=== PATIENT | female | born 1940 | race Caucasian/White ===

== ENCOUNTER 2019-02-11 14:35 | Emergency (ER) | payer OTHER ==
--- NOTE | 2019-02-11 15:40 | RAD REPORT ---
EXAM DESCRIPTION: Kaden Single View02/11/2019 3:31 pm CLINICAL HISTORY: Dizziness/breast cancer COMPARISON: 2016 FINDINGS: The lungs appear clear of acute infiltrate. The heart is normal size IMPRESSION: No acute abnormalities displayed
[2019-02-11 15:41] LABS: Absolute Lymphocytes (CBC) 2.2 K/uL (0.7-4.9); Basophils % 1.2 % (0-1.3); Hematocrit 39.7 % (36.0-45.0); Lymphocytes % 32.7 % (15.3-44.8); MPV 8.7 fL (7.6-11.3); RBC Red Blood Cell Count 4.81 M/uL (3.86-4.86)
[2019-02-11 15:52] LABS: Protime INR 0.96
--- NOTE | 2019-02-11 15:58 | RAD REPORT ---
EXAM DESCRIPTION: CT - Head Brain Wo Cont - 02/11/2019 3:51 pm CLINICAL HISTORY: Dizziness COMPARISON: September 2018 TECHNIQUE: Computed axial tomography of the head was obtained. IV contrast was not requested. All CT scans are performed using dose optimization technique as appropriate and may include automated exposure control or mA/KV adjustment according to patient size. FINDINGS: An intracranial bleed is not seen . The ventricles are normal in caliber. No extra-axial fluid collection is noted. Mild low-density areas within periventricular, deep and subcortical white matter likely represent isc hemic changes secondary to small vessel disease. Fluid within the sinuses/ mastoids is not seen. IMPRESSION: No acute intracranial abnormality is seen. If patient's symptoms persist MRI of the bra in would be recommended.
[2019-02-11 16:21] LABS: ALT/SGPT 21 U/L (12-78); AST/SGOT 19 U/L (15-37); Albumin 3.6 g/dL (3.4-5.0); Alkaline Phosphatase 106 U/L (45-117); BUN Blood Urea Nitrogen 11 mg/dL (7-18); Bicarbonate 29 mmol/L (21-32); Bilirubin Direct 0.2 mg/dL (0-0.2); Bilirubin Total 0.3 mg/dL (0.2-1.0); Glucose Level 93 mg/dL (74-106); Magnesium 2.1 mg/dL (1.8-2.4); NT PRO-BNP 55 pg/mL (<450); Potassium 4.2 mmol/L (3.5-5.1); Protein, Total 6.9 g/dL (6.4-8.2); Sodium Level 143 mmol/L (136-145); Troponin (Emerg Dept Use Only) < 0.02 ng/mL (0.0-0.045)
--- NOTE | 2019-02-11 17:29 | RAD REPORT ---
EXAM DESCRIPTION: MRI - Brain W/Wo Cont - 02/11/2019 4:58 pm CLINICAL HISTORY: Syncope/dizziness COMPARISON: February 11, [address] TECHNIQUE: Axial, sagittal, and coronal magnetic images of the brain were obtained. 20 cc MultiHance administered intravenously FINDINGS: Mild to moderate signal within periventricular, deep and subcortical white matter probably ischemic changes secondary to small vessel disease The ventricles are normal in caliber. Diffusion-weighted/ ADC mapping sequences do not demonstrate evidence of an acute infarction. No abnormal enhancement within the brain is seen. An extra-axial fluid collection is not noted. Fluid within the sinuses/mastoids is not seen IMPRESSION: No acute abnormality displayed
--- NOTE | 2019-02-11 17:31 | RAD REPORT ---
EXAM DESCRIPTION: MRI - MRA Neck W/Wo Cont - 02/11/2019 4:56 pm CLINICAL HISTORY: Syncope/dizziness COMPARISON: None. TECHNIQUE: Magnetic resonance angiogram of the neck was performed. 17Cc MultiHance was administered intravenously. 3D MIPS reconstruction performed FINDINGS: The common carotid, internal carotid and external carotid arteries do not demonstrate a si gnificant stenosis. An aneurysm is not seen. Mild plaque is present within the carotid arteries The left vertebral artery is dominant. No abnormality of the vertebral arteries noted. IMPRESSION: Mild plaque within in the carotid arteries NASCET criteria used. Mild 0-49% stenosis Moderate 50-69% stenosis Severe 70-99% stenosis
--- NOTE | 2019-02-11 17:34 | RAD REPORT ---
EXAM DESCRIPTION: MRI - MRA Head Wo Cont - 02/11/2019 4:56 pm CLINICAL HISTORY: Syncope/dizziness COMPARISON: 2009 TECHNIQUE: Magnetic resonance angiogram was performed. 3D MIPS reconstruction performed FINDINGS: The anterior cerebral, middle cerebral, posterior cerebral, distal internal carotid and ba silar arteries do not demonstrate a significant stenosis. An aneurysm is not displayed. IMPRESSION: Unremarkable MRA brain.
[2019-02-11] MEDS ORDERED: DIAZEPAM 2 MG TABLET ONE (17:35)
[2019-02-11] MEDS ORDERED: MECLIZINE HCL 12.5 MG TAB ONE (17:36)
--- NOTE | 2019-02-11 18:06 | ER ---
Nurse's Notes [facility] Name: Bella Ireland Age: 78 yrs Sex: Female : 1940 Arrival Date: 02/11/2019 Time: 14:36 Bed 23 Private MD: Diagnosis: Dizziness and giddiness Presentation: 02/11 14:37 Presenting complaint: Patient states: i have had vertigo since Saturday, i have been tw2 having some issues with it, it goes away, and then it gets worse again, today it got worse and i got real nauseous. Transition of care: patient was not received from another setting of care. Onset of symptoms was February 11, 2019. Risk Assessment: Do you want to hurt yourself or someone else? Patient reports no desire to harm self or others. Initial Sepsis Screen: Does the patient meet any 2 criteria? No. Patient's initial sepsis screen is negative. Does the patient have a suspected source of infection? No. Patient's initial sepsis screen is negative. Care prior to arrival: None. 14:37 Method Of Arrival: Wheelchair tw2 14:37 Acuity: MARGIE 3 tw2 Triage Assessment: 14:42 General: Appears in no apparent distress. Behavior is calm, cooperative, appropriate tw2 for age. Neuro: Reports dizziness. GI: Reports nausea. Historical: - Allergies: 14:43 No Known Allergies; tw2 - Home Meds: 14:42 B-12 DOTS 500 mcg Oral tab [Active]; Co Q-10 200 mg Oral cap [Active]; escitalopram tw2 oxalate 10 mg Oral tab 1 tab once daily for Anxiety with Depression [Active]; Fish Oil 500 mg Oral cap [Active]; folic acid 400 mcg Oral tab 1 tab once daily [Active]; hydrocodone-acetaminophen 5-325 mg Oral tab 1 tab every 6 hours [Active]; levothyroxine 75 mcg tab 1 tab once daily for Hypothyroidism [Active]; losartan 50 mg Oral tab 1 tab once daily for Hypertension [Active]; Phenergan Oral 25 mg [Active]; Pravachol 40 mg Oral tab 1 tab once daily for Mixed Hyperlipidemia [Active]; topiramate 100 mg Oral tab 1 tab 2 times per day for Migraine Prevention [Active]; Vitamin D Oral 2000 unit [Active]; pravastatin 40 mg oral tab 1 tab once daily [Active]; - PMHx: 14:42 Cancer; Depression; Hyperlipidemia; Hypertension; Hypothyroidism; Migraines; tw2 - PSHx: 14:42 Hysterectomy; Cholecystectomy; Appendectomy; Tonsillectomy; Knee surgery; L Masectomy; tw2 Rotator Cuff Bilateral; - Immunization history:: Adult Immunizations. - Social history:: Smoking status: . - Ebola Screening: : Patient denies travel to an Ebola-affected area in the 21 days before illness onset. Screenin:24 Abuse screen: Denies threats or abuse. Denies injuries from another. Nutritional ca1 screening: No deficits noted. Tuberculosis screening: No symptoms or risk factors identified. Fall Risk IV access (20 points). Assessment: 15:24 General: Appears in no apparent distress. comfortable, Behavior is calm, cooperative, ca1 appropriate for age. Pain: Denies pain. Neuro: Level of Consciousness is awake, alert, obeys commands, Oriented to person, place, time, situation, Appropriate for age Reports dizziness. Cardiovascular: Heart tones S1 S2 present Capillary refill < 3 seconds Patient's skin is warm and dry. Pulses are all present. Respiratory: Airway is patent Respiratory effort is even, unlabored, Respiratory pattern is regular, symmetrical, Breath sounds are clear bilaterally. GI: Abdomen is round non-distended, Bowel sounds present X 4 quads. Abd is soft and non tender X 4 quads. Reports nausea. : No deficits noted. No signs and/or symptoms were reported regarding the genitourinary system. EENT: No deficits noted. No signs and/or symptoms were reported regarding the EENT system. Derm: Skin is intact, is healthy with good turgor, Skin is pink, warm \\T\\ dry. Musculoskeletal: Circulation, motion, and sensation intact. Capillary refill < 3 seconds, Range of motion: intact in all extremities. 17:10 Reassessment: Patient appears in no apparent distress at this time. Patient and/or ca1 family updated on plan of care and expected duration. Pain level reassessed. Patient is alert, oriented x 3, equal unlabored respirations, skin warm/dry/pink. Pt back from CT and MRI. 17:25 Reassessment: Pt ambulated to rest room with quick unsteady gait. ca1 18:38 Reassessment: Patient appears in no apparent distress at this time. Patient is alert, ca1 oriented x 3, equal unlabored respirations, skin warm/dry/pink. Vital Signs: 14:38 BP 132 / 73; Pulse 91; Resp 17; Temp 98.3(O); Pulse Ox 96% on R/A; Weight 74.84 kg (R); tw2 Height 5 ft. 2 in. (157.48 cm) (R); Pain 8/10; 15:30 BP 107 / 63; Pulse 82; Resp 17 S; Pulse Ox 97% on R/A; ca1 17:20 BP 96 / 54; Pulse 78; Resp 15; Pulse Ox 97% on R/A; rv 18:30 BP 131 / 61; Pulse 86; Resp 17 S; Pulse Ox 95% on R/A; ca1 14:38 Body Mass Index 30.18 (74.84 kg, 157.48 cm) tw2 14:38 "but its really the dizziness not pain:" tw2 ED Course: 14:36 Patient arrived in ED. as 14:38 Triage completed. tw2 14:42 Arm band placed on. tw2 14:56 Mickie Serna, SANDRA is Primary Nurse. ca1 15:05 Noel Ignacio MD is Attending Physician. kdr 15:24 Patient has correct armband on for positive identification. Placed in gown. Bed in low ca1 position. Call light in reach. Side rails up X2. pad extraction tender on. Pulse ox on. NIBP on. Warm blanket given. Pillow given. 15:24 No provider procedures requiring assistance completed. Initial lab(s) drawn, by ar, ca1 sent to lab. Inserted saline lock: 22 gauge in right forearm, using aseptic technique. Blood collected. 15:32 XRAY Chest (1 view) In Process Unspecified. EDMS 15:40 EKG done, by urgent care technician. reviewed by Noel Ignacio MD. sm3 15:52 CT Head Brain wo Cont In Process Unspecified. EDMS 16:56 MRA Head Wo Cont In Process Unspecified. EDMS 16:57 MRA Neck W/Wo Cont In Process Unspecified. EDMS 16:57 Brain W/Wo Cont In Process Unspecified. EDMS 17:32 Macho Lara NP is PHCP. pm1 18:39 IV discontinued, intact, bleeding controlled, No redness/swelling at site. Pressure ca1 dressing applied. Administered Medications: 17:35 Drug: Meclizine 25 mg Route: PO; ca1 18:10 Follow up: Response: No adverse reaction; Marked relief of symptoms ca1 17:35 Drug: Valium 2 mg Route: PO; ca1 18:10 Follow up: Response: No adverse reaction; Marked relief of symptoms ca1 Outcome: 18:05 Discharge ordered by . pm1 18:39 Discharged to home via wheelchair, with family. ca1 18:39 Condition: stable 18:39 Discharge instructions given to patient, family, Instructed on discharge instructions, follow up and referral plans. no drinking with medication, no driving heavy equipment, medication usage, Demonstrated understanding of instructions, follow-up care, medications, Prescriptions given X 3. 18:39 Patient left the ED. ca1 Signatures: Dispatcher [employer] EDMS Noel Ignacio MD MD kdr Martinez, Amelia as Marinas, Patrick, WELT BEATER WELT BEATER pm1 Melissa Haas RN RN tw2 Olesya Olsen sm3 Reyes Golden RN RN rv Mickie Serna RN RN ca1
--- NOTE | 2019-02-11 18:07 | EDPHYS ---
Physician Documentation [facility] Name: Bella Ireland Age: 78 yrs Sex: Female : 1940 Arrival Date: 02/11/2019 Time: 14:36 Bed 23 Private MD: ED Physician Noel Ignacio HPI: 02/11 17:15 This 78 yrs old Female presents to ER via Wheelchair with complaints of kdr Dizziness, Nausea. 17:15 The patient presents with dizziness, generalized weakness, feeling off balance. kdr 17:15 The patient presents with sense of spinning, vertigo. Onset: The symptoms/episode kdr began/occurred suddenly, This episode began on Saturday. She has been having similar episodes for a year or more. She has seen both Neurology and ENT (Most recently). She has not had any recent medications that have helped. She has apparently had the [place] Hallpike/Eploy Maneuver with only transient success. Context: occurred at home, occurred while the patient was at rest. 17:20 Modifying factors: The symptoms are alleviated by nothing, the symptoms are aggravated kdr by movement of head, standing up, changing position. Associated signs and symptoms: Pertinent positives: nausea, Pertinent negatives: abdominal pain, agitation, blurred vision, chest pain, near-syncope, numbness, palpitations, . Severity of symptoms: At their worst the symptoms were moderate in the emergency department the symptoms have improved mildly. Patient's baseline: Neuro: alert and fully oriented, Motor: no deficits, Ambulation: walks without assistance, Speech: normal, The patient has a previous history of TIA, vertigo. Historical: - Allergies: 14:43 No Known Allergies; tw2 - Home Meds: 14:42 B-12 DOTS 500 mcg Oral tab [Active]; Co Q-10 200 mg Oral cap [Active]; escitalopram tw2 oxalate 10 mg Oral tab 1 tab once daily for Anxiety with Depression [Active]; Fish Oil 500 mg Oral cap [Active]; folic acid 400 mcg Oral tab 1 tab once daily [Active]; hydrocodone-acetaminophen 5-325 mg Oral tab 1 tab every 6 hours [Active]; levothyroxine 75 mcg tab 1 tab once daily for Hypothyroidism [Active]; losartan 50 mg Oral tab 1 tab once daily for Hypertension [Active]; Phenergan Oral 25 mg [Active]; Pravachol 40 mg Oral tab 1 tab once daily for Mixed Hyperlipidemia [Active]; topiramate 100 mg Oral tab 1 tab 2 times per day for Migraine Prevention [Active]; Vitamin D Oral 2000 unit [Active]; pravastatin 40 mg oral tab 1 tab once daily [Active]; - PMHx: 14:42 Cancer; Depression; Hyperlipidemia; Hypertension; Hypothyroidism; Migraines; tw2 - PSHx: 14:42 Hysterectomy; Cholecystectomy; Appendectomy; Tonsillectomy; Knee surgery; L Masectomy; tw2 Rotator Cuff Bilateral; - Immunization history:: Adult Immunizations. - Social history:: Smoking status: . - Ebola Screening: : Patient denies travel to an Ebola-affected area in the 21 days before illness onset. ROS: 17:20 Constitutional: Negative for fever, chills, and weight loss, Eyes: Negative for injury, kdr pain, redness, and discharge, Neck: Negative for injury, pain, and swelling, Cardiovascular: Negative for chest pain, palpitations, and edema, Respiratory: Negative for shortness of breath, cough, wheezing, and pleuritic chest pain, Abdomen/GI: Negative for abdominal pain, nausea, vomiting, diarrhea, and constipation, Back: Negative for injury and pain, : Negative for injury, bleeding, discharge, and swelling, MS/Extremity: Negative for injury and deformity, Skin: Negative for injury, rash, and discoloration, Psych: Negative for depression, anxiety, suicide ideation, homicidal ideation, and hallucinations, Allergy/Immunology: Negative for hives, rash, and allergies, Endocrine: Negative for neck swelling, polydipsia, polyuria, polyphagia, and marked weight changes, Hematologic/Lymphatic: Negative for swollen nodes, abnormal bleeding, and unusual bruising. 17:20 Neuro: Positive for dizziness, weakness, Negative for altered mental status, headache, hearing loss, loss of consciousness, seizure activity, speech changes, syncope, near syncope, tingling, tinnitus, tremor, visual changes. Exam: 17:20 Constitutional: This is a well developed, well nourished patient who is awake, alert, kdr and in no acute distress. Head/Face: Normocephalic, atraumatic. Eyes: Pupils equal round and reactive to light, extra-ocular motions intact. Lids and lashes normal. Conjunctiva and sclera are non-icteric and not injected. Cornea within normal limits. Periorbital areas with no swelling, redness, or edema. Neck: Trachea midline, no thyromegaly or masses palpated, and no cervical lymphadenopathy. Supple, full range of motion without nuchal rigidity, or vertebral point tenderness. No Meningismus. Chest/axilla: Normal chest wall appearance and motion. Nontender with no deformity. No lesions are appreciated. Cardiovascular: Regular rate and rhythm with a normal S1 and S2. No gallops, murmurs, or rubs. Normal PMI, no JVD. No pulse deficits. Respiratory: Lungs have equal breath sounds bilaterally, clear to auscultation and percussion. No rales, rhonchi or wheezes noted. No increased work of breathing, no retractions or nasal flaring. Abdomen/GI: Soft, non-tender, with normal bowel sounds. No distension or tympany. No guarding or rebound. No evidence of tenderness throughout. Back: No spinal tenderness. No costovertebral tenderness. Full range of motion. Skin: Warm, dry with normal turgor. Normal color with no rashes, no lesions, and no evidence of cellulitis. MS/ Extremity: Pulses equal, no cyanosis. Neurovascular intact. Full, normal range of motion. Psych: Awake, alert, with orientation to person, place and time. Behavior, mood, and affect are within normal limits. 17:20 Neuro: Orientation: is normal, Mentation: is normal, Memory: is normal, Cranial nerves: grossly normal, is grossly normal based on the patient's age, no acute changes, Cerebellar function: normal finger to nose testing, heel to hernandez testing is normal, able to perform alternating rapid hand movements, Motor: is normal, Sensation: is normal. Vital Signs: 14:38 BP 132 / 73; Pulse 91; Resp 17; Temp 98.3(O); Pulse Ox 96% on R/A; Weight 74.84 kg (R); tw2 Height 5 ft. 2 in. (157.48 cm) (R); Pain 8/10; 15:30 BP 107 / 63; Pulse 82; Resp 17 S; Pulse Ox 97% on R/A; ca1 17:20 BP 96 / 54; Pulse 78; Resp 15; Pulse Ox 97% on R/A; rv 18:30 BP 131 / 61; Pulse 86; Resp 17 S; Pulse Ox 95% on R/A; ca1 14:38 Body Mass Index 30.18 (74.84 kg, 157.48 cm) tw2 14:38 "but its really the dizziness not pain:" tw2 MDM: 17:20 Data reviewed: vital signs, nurses notes. Counseling: I had a detailed discussion with kdr the patient and/or guardian regarding: the historical points, exam findings, and any diagnostic results supporting the discharge/admit diagnosis, lab results, radiology results. 18:01 Counseling: I had a detailed discussion with the patient and/or guardian regarding: the pm1 historical points, exam findings, and any diagnostic results supporting the discharge/admit diagnosis, lab results, radiology results, the need for outpatient follow up, a neurologist, to return to the emergency department if symptoms worsen or persist or if there are any questions or concerns that arise at home. 18:05 Patient medically screened. pm1 02/11 15:06 Order name: Basic Metabolic Panel; Complete Time: 17:14 [facility] 02/11 15:06 Order name: CBC with Diff; Complete Time: 17:14 [facility] 02/11 15:06 Order name: LFT's; Complete Time: 17:14 [facility] 02/11 15:06 Order name: Magnesium; Complete Time: 17:14 [facility] 02/11 15:06 Order name: NT PRO-BNP; Complete Time: 17:14 [facility] 02/11 15:06 Order name: PT-INR; Complete Time: 17:14 [facility] 02/11 15:06 Order name: Troponin (emerg Dept Use Only); Complete Time: 17:14 [facility] 02/11 15:06 Order name: XRAY Chest (1 view); Complete Time: 17:14 [facility] 02/11 15:39 Order name: CT Head Brain wo Cont; Complete Time: 17:14 [facility] 02/11 16:27 Order name: MRA Head Wo Cont; Complete Time: 17:48 EDMS 02/11 16:32 Order name: MRA Neck W/Wo Cont; Complete Time: 17:48 EDMS 02/11 16:32 Order name: Brain W/Wo Cont; Complete Time: 17:48 EDMS 02/11 15:06 Order name: EKG; Complete Time: 15:07 [facility] 02/11 15:06 Order name: Cardiac monitoring; Complete Time: 15:23 [facility] 02/11 15:06 Order name: EKG - Nurse/Tech; Complete Time: 15:36 kdr 02/11 15:06 Order name: IV Saline Lock; Complete Time: 15:23 kdr 02/11 15:06 Order name: Labs collected and sent; Complete Time: 15:23 kdr 02/11 15:06 Order name: O2 Per Protocol; Complete Time: 15:23 kdr 02/11 15:06 Order name: O2 Sat Monitoring; Complete Time: 15:23 kdr Administered Medications: 17:35 Drug: Meclizine 25 mg Route: PO; ca1 18:10 Follow up: Response: No adverse reaction; Marked relief of symptoms ca1 17:35 Drug: Valium 2 mg Route: PO; ca1 18:10 Follow up: Response: No adverse reaction; Marked relief of symptoms ca1 Disposition: 02/12 08:57 Co-signature as Attending Physician, Noel Ignacio MD I agree with the assessment and [facility] plan of care. Disposition: 02/11/19 18:05 Discharged to Home. Impression: Dizziness and giddiness. - Condition is Stable. - Discharge Instructions: Dizziness, Vertigo. - Prescriptions for Meclizine 25 mg Oral Tablet - take 1 tablet by ORAL route every 8 hours As needed; 30 tablet. Zofran 4 mg Oral Tablet - take 1 tablet by ORAL route every 12 hours As needed; 20 tablet. Valium 2 mg Oral Tablet - take 1 tablet by ORAL route every 8 hours As needed; 20 tablet. - Medication Reconciliation Form, Thank You Letter, Antibiotic Education, Prescription Opioid Use form. - Follow up: Emergency Department; When: As needed; Reason: Worsening of condition. Follow up: Private Physician; When: 2 - 3 days; Reason: Recheck today's complaints, Continuance of care, Re-evaluation by your physician. - Problem is new. - Symptoms have improved. Signatures: Dispatcher [employer] [facility] Noel Ignacio MD MD kdr Macho Lara, SOLAR SALES REPRESENTATIVE SOLAR SALES REPRESENTATIVE pm1 Melissa Haas RN RN tw2 Mickie Serna RN RN ca1 Corrections: (The following items were deleted from the chart) 02/11 16:26 15:40 MR STROKE PROTOCOL+MRI.RAD.BRZ ordered. EDOK EDOK 18:39 18:05 02/11/2019 18:05 Discharged to Home. Impression: Dizziness and giddiness. ca1 Condition is Stable. Forms are Medication Reconciliation Form, Thank You Letter, Antibiotic Education, Prescription Opioid Use. Follow up: Emergency Department; When: As needed; Reason: Worsening of condition. Follow up: Private Physician; When: 2 - 3 days; Reason: Recheck today's complaints, Continuance of care, Re-evaluation by your physician. Problem is new. Symptoms have improved. pm1
[2019-02-11 20:04] VITALS: TEMP 98.3
[2019-02-11 20:08] VITALS: BP 131/61; O2SAT 95
--- NOTE | 2019-02-12 07:04 | EKG ---
Test Date: 2019-02-11 Test Time: 15:30:48 Bank President: NEHA MEASUREMENT RESULTS: Intervals: Rate: 82 SC: 156 QRSD: 72 QT: 366 QTc: 427 [place]: P: 54 SC: 156 QRS: -20 T: 23 INTERPRETIVE STATEMENTS: Normal sinus rhythm Normal ECG Compared to ECG 12/22/2015 19:10:38 Left-axis deviation no longer present Electronically Signed On 02-12-19 07:03:49 CDT by Antione Lyles
== END 2019-02-11 18:39 | disposition home or self-care (01) ==
LOC: ER 14:35
DX: R42 Dizziness and giddiness (principal); I10 Essential (primary) hypertension; E78.5 Hyperlipidemia, unspecified; E03.9 Hypothyroidism, unspecified; F32.9 Major depressive disorder, single episode, unspecified; Z90.12 Acquired absence of left breast and nipple; Z85.3 Personal history of malignant neoplasm of breast
CPT/HCPCS: 93005; 85025; 80048; 36415; 83735; 85610; 80076; 84484; 83880; 70450; 71045; 70553; 70544; 70549; A9577

== ENCOUNTER 2022-10-13 19:58 | Emergency (ER) | payer OTHER ==
[2011-10-19 13:21] VITALS: BP 116/46
--- OUTSIDE RECORDS SUMMARY | 2022-10-13 20:03 | XMS REPORT | Continuity of Care Document ---
:[address] [facility] t Address [address] [place] [address] Care Team Providers Name Role Phone Kvng Welsh MD Primary Care Physician Lab, Adc Fam Pob I Attending Clinician Unavailable Unknown, Attending Attending Clinician Unavailable UNKNOWN, ATTENDING Attending Clinician Unavailable Payers Payer Name Policy Type Policy Number Effective Date Expiration Date S ource AETNA MEDICARE C1 [id number] [facility] AETNA MEDICARE C1 [id number] [facility] AETNA MEDICARE C1 [id number] Common [facility] rit [facility] Problems Condition Condition Condition Status Onset Resolution Last Treating Co mments Source Name Details Category Date Date Treatment Clinician Date Diverticul Diverticul Disease Active 2017-05 M ethodi itis itis 07-01 st 00:00: Hospita 00 l Allergies, Adverse Reactions, Alerts Allergy Allergy Status Severity Reaction(s) Onset Inactive Treating Comm ents Source Name Type Date Date Clinician Pneumoco Propensi Active Rash 2017-05 Pneumonia Met hodi ccal ty to 07-01 vaccine-r st Vaccine adverse 00:00: [facility] reaction 00 l s to drug NO KNOWN Drug Active Univers ALLERGIE Class ity of S [facility] Family History Family Member Diagnosis Comments Start Date Stop Date Source Natural father Lung cancer [facility] Natural mother Hypertension [facility] Natural mother Stroke [facility] Social History Social Habit Start Date Stop Date Quantity Comments Source History of Tobacco [facility] Gender identity [facility] Sexual orientation [facility] History of Social 2019-01-06 2019-01-[address] function 00:00:00 00:00:00 Hospital Alcohol intake 2018-06-10 2018-06-10 Current Mandaen 00:00:00 00:00:00 non-drinker of Hospital alcohol (finding) Tobacco use and 2018-03-13 2018-03-13 Smokeless Mandaen exposure 00:00:00 00:00:00 tobacco non-user Hospital Sex Assigned At [birth year] Mandaen 00:00:00 00:00:00 Hospital Smoking Status Start Date Stop Date Source Unknown if ever smoked [facility] Never Smoker [facility] Medications Ordered Filled Start Stop Current Ordering Indication Dosage Frequency Signature Comments Components Source Medication Medication Date Date Medication? Clinician (SIG) Name Name Tramadol Tramadol No Tramadol HCl 50 MG HCl 50 MG 3-01 HCl 50 MG 00:00: 00 Tramadol Tramadol Yes Hang 1 tablet Common HCl HCl 1-13 García [facility] 00:00: [facility] Tramadol Tramadol 0 No 1{table Tramadol Common HCl 50 MG HCl 50 MG 1-13 t} HCl 50 MG Spirit 00:00: [facility] Tramadol Tramadol 0 No 1{table Tramadol HCl 50 MG HCl 50 MG 1-13 t} HCl 50 MG 00:00: 00 Tramadol Tramadol 0 No 1{table Tramadol HCl 50 MG HCl 50 MG 1-13 t} HCl 50 MG 00:00: 00 losartan 2017-05 Yes 50mg QD Take 50 mg Met hodi (COZAAR) 50 2-[address] MG tablet 12:50: daily. Hospit a 23 l levothyroxi 2017-05 Yes 50ug QD Take 50 Met hodi ne 2-[address] (SYNTHROID, 12:50: mouth Hospi ta LEVOXYL) 50 23 every l mcg tablet morning. topiramate 2017-05 Yes 100mg Take 100 Me thodi (TOPAMAX) 2-[address] 100 MG 12:50: mouth. Hospita tablet 23 l escitalopra 2017-05 Yes 10mg QD Take 10 mg Methodi m (LEXAPRO) 2-[address] 10 MG 12:50: daily. Hospita tablet 23 l cholecalcif 2017-05 Yes 2000U Q.5D Take 2,000 Methodi neisha, 2-[address] vitamin D3, 12:50: mouth 2 Hos tristen (VITAMIN 23 (two) l D3) 2,000 times a unit day. capsule capsule cyanocobala 2017-05 Yes 500ug QD Take 500 M ethodi min 2-[address] (VITAMIN 12:50: mouth Hospita B-12) 500 23 daily. l MCG tablet pravastatin 2017-05 Yes 40mg QD Take 40 mg Methodi (PRAVACHOL) 2-[address] 40 MG 12:50: nightly. Hospita tablet 23 l amitriptyli 2017-05 Yes 10mg QD Take 10 mg Methodi ne (ELAVIL) 2-[address] 10 MG 12:50: nightly. Hospita tablet 23 l HYDROcodone 2017-05 Yes 1{tbl} Q6H Take 1 Me thodi -acetaminop 2-[address] hen (NORCO) 12:50: mouth Hospi ta 5-325 mg 23 every 6 l per tablet (six) hours as needed for moderate pain. losartan 2017-05 Yes 50mg QD Take 50 mg Met hodi (COZAAR) 50 2-[address] MG tablet 12:50: daily. Hospit a 23 l levothyroxi 2017-05 Yes 50ug QD Take 50 Met hodi ne 2-[address] (SYNTHROID, 12:50: mouth Hospi ta LEVOXYL) 50 23 every l mcg tablet morning. topiramate 2017-05 Yes 100mg Take 100 Me thodi (TOPAMAX) 2-[address] 100 MG 12:50: mouth. Hospita tablet 23 l escitalopra 2017-05 Yes 10mg QD Take 10 mg Methodi m (LEXAPRO) 2-[address] 10 MG 12:50: daily. Hospita tablet 23 l cholecalcif 2017-05 Yes 2000U Q.5D Take 2,000 Methodi enisha, 2-[address] vitamin D3, 12:50: mouth 2 Hos tristen (VITAMIN 23 (two) l D3) 2,000 times a unit day. capsule capsule cyanocobala 2017-05 Yes 500ug QD Take 500 M ethodi min 2-[address] (VITAMIN 12:50: mouth Hospita B-12) 500 23 daily. l MCG tablet pravastatin 2017-05 Yes 40mg QD Take 40 mg Methodi (PRAVACHOL) 2-[address] 40 MG 12:50: nightly. Hospita tablet 23 l amitriptyli 2017-05 Yes 10mg QD Take 10 mg Methodi ne (ELAVIL) 2-[address] 10 MG 12:50: nightly. Hospita tablet 23 l HYDROcodone 2017-05 Yes 1{tbl} Q6H Take 1 Me thodi -acetaminop 2-[address] hen (NORCO) 12:50: mouth Hospi ta 5-325 mg 23 every 6 l per tablet (six) hours as needed for moderate pain. losartan 2017-05 Yes 50mg QD Take 50 mg Met hodi (COZAAR) 50 2-[address] MG tablet 12:50: daily. Hospit a 23 l levothyroxi 2017-05 Yes 50ug QD Take 50 Met hodi ne 2-[address] (SYNTHROID, 12:50: mouth Hospi ta LEVOXYL) 50 23 every l mcg tablet morning. topiramate 2017-05 Yes 100mg Take 100 Me thodi (TOPAMAX) 2-[address] 100 MG 12:50: mouth. Hospita tablet 23 l escitalopra 2017-05 Yes 10mg QD Take 10 mg Methodi m (LEXAPRO) 2-[address] 10 MG 12:50: daily. Hospita tablet 23 l cholecalcif 2017-05 Yes 2000U Q.5D Take 2,000 Methodi neisha, 2-[address] vitamin D3, 12:50: mouth 2 Hos tristen (VITAMIN 23 (two) l D3) 2,000 times a unit day. capsule capsule cyanocobala 2017-05 Yes 500ug QD Take 500 M ethodi min 2-[address] (VITAMIN 12:50: mouth Hospita B-12) 500 23 daily. l MCG tablet pravastatin 2017-05 Yes 40mg QD Take 40 mg Methodi (PRAVACHOL) 2-[address] 40 MG 12:50: nightly. Hospita tablet 23 l amitriptyli 2017-05 Yes 10mg QD Take 10 mg Methodi ne (ELAVIL) 2-[address] 10 MG 12:50: nightly. Hospita tablet 23 l HYDROcodone 2017-05 Yes 1{tbl} Q6H Take 1 Me thodi -acetaminop 2-[address] hen (NORCO) 12:50: mouth Hospi ta 5-325 mg 23 every 6 l per tablet (six) hours as needed for moderate pain. losartan 2017-05 Yes 50mg QD Take 50 mg Met hodi (COZAAR) 50 2-[address] MG tablet 12:50: daily. Hospit a 23 l levothyroxi 2017-05 Yes 50ug QD Take 50 Met hodi ne 2-[address] (SYNTHROID, 12:50: mouth Hospi ta LEVOXYL) 50 23 every l mcg tablet morning. topiramate 2017-05 Yes 100mg Take 100 Me thodi (TOPAMAX) 2-[address] 100 MG 12:50: mouth. Hospita tablet 23 l escitalopra 2017-05 Yes 10mg QD Take 10 mg Methodi m (LEXAPRO) 2-[address] 10 MG 12:50: daily. Hospita tablet 23 l cholecalcif 2017-05 Yes 2000U Q.5D Take 2,000 Methodi neisha, 2-[address] vitamin D3, 12:50: mouth 2 Hos tristen (VITAMIN 23 (two) l D3) 2,000 times a unit day. capsule capsule cyanocobala 2017-05 Yes 500ug QD Take 500 M ethodi min 2-[address] (VITAMIN 12:50: mouth Hospita B-12) 500 23 daily. l MCG tablet pravastatin 2017-05 Yes 40mg QD Take 40 mg Methodi (PRAVACHOL) 2-[address] 40 MG 12:50: nightly. Hospita tablet 23 l amitriptyli 2017-05 Yes 10mg QD Take 10 mg Methodi ne (ELAVIL) 2-[address] 10 MG 12:50: nightly. Hospita tablet 23 l HYDROcodone 2017-05 Yes 1{tbl} Q6H Take 1 Me thodi -acetaminop 2-[address] hen (NORCO) 12:50: mouth Hospi ta 5-325 mg 23 every 6 l per tablet (six) hours as needed for moderate pain. losartan 2017-05 Yes 50mg QD Take 50 mg Met hodi (COZAAR) 50 2-[address] MG tablet 12:50: daily. Hospit a 23 l levothyroxi 2017-05 Yes 50ug QD Take 50 Met hodi ne 2-[address] (SYNTHROID, 12:50: mouth Hospi ta LEVOXYL) 50 23 every l mcg tablet morning. topiramate 2017-05 Yes 100mg Take 100 Me thodi (TOPAMAX) 2-[address] 100 MG 12:50: mouth. Hospita tablet 23 l escitalopra 2017-05 Yes 10mg QD Take 10 mg Methodi m (LEXAPRO) 2-[address] 10 MG 12:50: daily. Hospita tablet 23 l cholecalcif 2017-05 Yes 2000U Q.5D Take 2,000 Methodi neisha, 2-[address] vitamin D3, 12:50: mouth 2 Hos tristen (VITAMIN 23 (two) l D3) 2,000 times a unit day. capsule capsule cyanocobala 2017-05 Yes 500ug QD Take 500 M ethodi min 2-[address] (VITAMIN 12:50: mouth Hospita B-12) 500 23 daily. l MCG tablet pravastatin 2017-05 Yes 40mg QD Take 40 mg Methodi (PRAVACHOL) 2-[address] 40 MG 12:50: nightly. Hospita tablet 23 l amitriptyli 2017-05 Yes 10mg QD Take 10 mg Methodi ne (ELAVIL) 2-[address] 10 MG 12:50: nightly. Hospita tablet 23 l HYDROcodone 2017-05 Yes 1{tbl} Q6H Take 1 Me thodi -acetaminop 2-[address] hen (NORCO) 12:50: mouth Hospi ta 5-325 mg 23 every 6 l per tablet (six) hours as needed for moderate pain. Pravastatin Pravastatin No Pravastati Common Sodium Sodium n Sodium [facility] Losartan Losartan No Losartan Com mon Potassium Potassium Potassium Spirit 50 MG 50 MG 50 MG - [facility] Escitalopra Escitalopra No Escitalopr Common m Oxalate m Oxalate am Oxalate [facility] PredniSONE PredniSONE No PredniSONE Common [facility] Levothyroxi Levothyroxi No Levothyrox Common ne Sodium ne Sodium ine Sodium Spirit 50 MCG 50 MCG 50 MCG - [facility] Aspirin Low Aspirin Low No Aspirin Common Dose Dose Low Dose [facility] Restasis Restasis No Restasis Com mon [facility] Tramadol Tramadol No Tramadol Com mon HCl HCl HCl [facility] Topiramate Topiramate No Topiramate Common [facility] Tizanidine Tizanidine No Tizanidine Common HCl HCl HCl [facility] Meclizine Meclizine No Meclizine HCl HCl HCl Pravastatin Pravastatin No Pravastati Sodium Sodium n Sodium Losartan Losartan No Losartan Potassium Potassium Potassium 50 MG 50 MG 50 MG Escitalopra Escitalopra No Escitalopr m Oxalate m Oxalate am Oxalate PredniSONE PredniSONE No PredniSONE Levothyroxi Levothyroxi No Levothyrox ne Sodium ne Sodium ine Sodium 50 MCG 50 MCG 50 MCG Aspirin Low Aspirin Low No Aspirin Dose Dose Low Dose Restasis Restasis No Restasis Tramadol Tramadol No Tramadol HCl HCl HCl Topiramate Topiramate No Topiramate Tizanidine Tizanidine No Tizanidine HCl HCl HCl Azithromyci Azithromyci No Azithromyc n n in Promethazin Promethazin No Promethazi e-DM e-DM ne-DM HydrOXYzine HydrOXYzine No HydrOXYzin HCl HCl e HCl Benzonatate Benzonatate No Benzonatat e Restasis Restasis No Restasis Promethazin Promethazin No Promethazi e-Codeine e-Codeine ne-Codeine Escitalopra Escitalopra No Escitalopr m Oxalate m Oxalate am Oxalate Promethazin Promethazin No Promethazi e HCl e HCl ne HCl Meclizine Meclizine No Meclizine HCl HCl HCl Metronidazo Metronidazo No Metronidaz le [place] Tizanidine Tizanidine No Tizanidine HCl HCl HCl Cefdinir Cefdinir No Cefdinir Ciprofloxac Ciprofloxac No Ciprofloxa in HCl in HCl pollo HCl Aspirin Low Aspirin Low No Aspirin Dose Dose Low Dose Tramadol Tramadol No Tramadol HCl HCl HCl Flovent HFA Flovent HFA No Flovent HFA Pravastatin Pravastatin No Pravastati Sodium Sodium n Sodium PredniSONE PredniSONE No PredniSONE Topiramate Topiramate No Topiramate Losartan Losartan No Losartan Potassium Potassium Potassium 50 MG 50 MG 50 MG Levothyroxi Levothyroxi No Levothyrox ne Sodium ne Sodium ine Sodium 50 MCG 50 MCG 50 MCG Cholestyram Cholestyram No Cholestyra ine ine mine Acetaminoph Acetaminoph No Acetaminop en-Codeine en-Codeine hen-Codein #3 #3 e #3 Methscopola Methscopola No Methscopol mine mine amine Trenary Trenary Trenary Restasis Restasis Yes Hang not Comm on García defined [facility] Escitalopra Escitalopra Yes Hang not Common m Oxalate m Oxalate [facility] Pravastatin Pravastatin Yes Hang not Common Sodium Sodium García defined [facility] Meclizine Meclizine Yes Hang not Co mmon HCl HCl García [facility] Tramadol Tramadol Yes Hang not Comm on HCl HCl García defined [facility] Topiramate Topiramate Yes Hang not Common García defined [facility] Losartan Losartan Yes Hang TK 1 T PO Common Potassium Potassium García QD [facility] Levothyroxi Levothyroxi Yes Hang TK 1 T PO Common ne Sodium ne Sodium García QD [facility] Meclizine Meclizine No Meclizine Common HCl HCl HCl [facility] Immunizations Ordered Immunization Filled Immunization Date Status Commen ts Source Name Name Adin Oakley 2020-03-31 Completed [facility] (Triamcinolone) (Triamcinolone) 09:30:00 [facility] Adin Oakley 2020-03-31 Completed [facility] (Triamcinolone) (Triamcinolone) 09:30:00 [facility] Adin Oakley 2020-03-31 Completed [facility] (Triamcinolone) (Triamcinolone) 09:30:00 [facility] Bupivicaine [place] Bupivicaine [place] 2020-03-31 Completed [facility] 09:29:00 [facility] Bupivicaine [place] Bupivicaine [place] 2020-03-31 Completed [facility] 09:29:00 - [facility] Bupivicaine [place] Bupivicaine [place] 2020-03-31 Completed [facility] 09::00 - [facility] Bupivicaine [place] Bupivicaine [place] 2019-06-01 Completed [facility] 10:27:00 - [facility] Bupivicaine [place] Bupivicaine [place] 2019-06-01 Completed [facility] 10:: - [facility] Bupivicaine [place] Bupivicaine [place] 2019-06-01 Completed [facility] 10:: - [facility] Kenalog Kenalog 2019-06-01 Completed [facility] (Triamcinolone) (Triamcinolone) 10:: [facility] Kenalog Kenalog 2019-06-01 Completed [facility] (Triamcinolone) (Triamcinolone) 10:: [facility] Kenalog Kenalog 2019-06-01 Completed [facility] (Triamcinolone) (Triamcinolone) 10:: [facility] Vital Signs Vital Name Observation Time Observation Value Comments Source height 2020-07-18 08:30:00 62 [in_i] [facility] weight 2020-07-18 08:30:00 163 [lb_av] [facility] temperature 2020-07-18 08:30:00 97.1 [degF] [facility] bmi 2020-07-18 08:30:00 29.81 kg/m2 [facility] blood pressure 2020-07-18 08:30:00 132 mm[Hg] [facility] - systolic [facility] blood pressure 2020-07-18 08:30:00 74 mm[Hg] Common [facility] - diastolic [facility] height 2020-03-31 09:00:00 62 [in_i] [facility] weight 2020-03-31 09:00:00 170.2 [lb_av] [facility] bmi 2020-03-31 09:00:00 31.13 kg/m2 [facility] blood pressure 2020-03-31 09:00:00 134 mm[Hg] [facility] - systolic [facility] blood pressure 2020-03-31 09:00:00 77 mm[Hg] [facility] - diastolic [facility] Procedures This patient has no known procedures. Plan of Care Planned Activity Planned Date Details Comments Source Future Scheduled 2022-08-24 COVID-19 VACCINE (#1) [facility] Test 10:44:33 [code = COVID-19 VACCINE (#1)] Future Scheduled 2022-08-24 SHINGLES VACCINES (1 Met [facility] Test 10:44:33 of 2) [code = SHINGLES VACCINES (1 of 2)] Future Scheduled 2022-08-24 65+ PNEUMOCOCCAL [facility] Test 10:44:33 VACCINE (1 - PCV) [code = 65+ PNEUMOCOCCAL VACCINE (1 - PCV)] Future Scheduled 2022-08-24 INFLUENZA VACCINE [facility] Test 10:44:33 [code = INFLUENZA VACCINE] Future Scheduled 2022-05-23 INFLUENZA VACCINE [facility] Test 19:39:51 [code = INFLUENZA VACCINE] Future Scheduled 2022-05-23 COVID-19 VACCINE (#1) [facility] Test 19:39:51 [code = COVID-19 VACCINE (#1)] Future Scheduled 2022-05-23 SHINGLES VACCINES (1 Met [facility] Test 19:39:51 of 2) [code = SHINGLES VACCINES (1 of 2)] Future Scheduled 2022-05-23 65+ PNEUMOCOCCAL [facility] Test 19:39:51 VACCINE (1 - PCV) [code = 65+ PNEUMOCOCCAL VACCINE (1 - PCV)] Future Scheduled 2022-05-23 INFLUENZA VACCINE [facility] Test 19:39:51 [code = INFLUENZA VACCINE] Future Scheduled 2022-05-23 COVID-19 VACCINE (#1) [facility] Hospital Test 19:39:51 [code = COVID-19 VACCINE (#1)] Future Scheduled 2022-05-23 SHINGLES VACCINES (1 Met [facility] Test 19:39:51 of 2) [code = SHINGLES VACCINES (1 of 2)] Future Scheduled 2022-05-23 65+ PNEUMOCOCCAL [facility] Test 19:39:51 VACCINE (1 - PCV) [code = 65+ PNEUMOCOCCAL VACCINE (1 - PCV)] Future Scheduled 2022-05-23 INFLUENZA VACCINE Method [facility] Hospital Test 19:39:51 [code = INFLUENZA VACCINE] Future Scheduled 2022-05-23 COVID-19 VACCINE (#1) [facility] Hospital Test 19:39:51 [code = COVID-19 VACCINE (#1)] Future Scheduled 2022-05-23 SHINGLES VACCINES (1 Met [facility] Test 19:39:51 of 2) [code = SHINGLES VACCINES (1 of 2)] Future Scheduled 2022-05-23 65+ PNEUMOCOCCAL [facility] Test 19:39:51 VACCINE (1 - PCV) [code = 65+ PNEUMOCOCCAL VACCINE (1 - PCV)] Future Scheduled 2022-05-23 INFLUENZA VACCINE [facility] Test 19:39:51 [code = INFLUENZA VACCINE] Future Scheduled 2022-05-23 COVID-19 VACCINE (#1) [facility] Hospital Test 19:39:51 [code = COVID-19 VACCINE (#1)] Future Scheduled 2022-05-23 SHINGLES VACCINES (1 Met [facility] Test 19:39:51 of 2) [code = SHINGLES VACCINES (1 of 2)] Future Scheduled 2022-05-23 65+ PNEUMOCOCCAL Methodi [facility] Test 19:39:51 VACCINE (1 - PCV) [code = 65+ PNEUMOCOCCAL VACCINE (1 - PCV)] Encounters Start End Encounter Admission Attending Care Care Encounter Source Date/Time Date/Time Type Type Clinicians Facility Department ID 2021-06-14 Outpatient [facility] [id number] Common 12:37:24 [id number] [facility] 2021-06-14 [facility] [id number] Common 12:35:19 [id number] [facility] 2021-06-14 [facility] [id number] Common 10:59:58 [id number] [facility] 2020-07-18 2020-07-18 OFFICE [facility] [id number] Co mmon 00:00:00 00:00:00 VISIT EST Spir it PT LEVEL 3 [facility] 2020-07-11 2020-07-11 (TEL) [facility] [id number] Co mmon 00:00:00 00:00:00 [facility] - [facility] 2020-05-02 2020-05-02 Telephone Lab, [facility] [id number] Univers 00:00:00 00:00:00 Fam Pob I Health [id number] [facility] [id number] Mario as Professio [phone] Nh dical nal [address] 2020-04-27 2020-04-27 Laboratory Lab, [facility] Fam Pob I [facility] [id number] Univers 15:02:12 15:22:12 Only Unknown, Attending Health [id number] [facility] [place] [id number] Mario as Professio [phone] [address] Office [facility] 2020-04-27 2020-04-27 Outpatient R UNKNOWN, [facility] [id number] Univers 15:20:00 15:20:00 ATTENDING ity of [facility] 2020-03-31 2020-03-31 OFFICE [facility] [id number] Co mmon 00:00:00 00:00:00 VISIT EST Spir it PT LEVEL 3 - [facility] 2019-06-01 2019-06-01 Outpatient Carine Aldridge [id number] Common 10:00:00 10:00:00 [facility] Results This patient has no known results.
[2022-10-13] MEDS ORDERED: IBUPROFEN 400 MG TAB ONE (20:58)
--- NOTE | 2022-10-13 21:35 | RAD REPORT ---
EXAM DESCRIPTION: RAD - Hand Right 3 View - 10/13/2022 9:18 pm CLINICAL HISTORY: R hand pain COMPARISON: No comparisons TECHNIQUE: Right hand, 3 views. FINDINGS: Comminuted, volar apex angulated, distal radial metaphysis fracture. Soft tissue swelling about the wrist. There is anterior subluxation of the ulnar head relative to the carpus. Moderate degenerative changes at the thumb base and scaphoid multangular articulation are no kaz. IMPRESSION: Comminuted, volar apex angulated, distal radial metaphyseal fracture. Anterior subluxation of the ulnar head relative to the carpus.
--- NOTE | 2022-10-13 21:36 | RAD REPORT ---
EXAM DESCRIPTION: RAD - Forearm Right - 10/13/2022 9:18 pm CLINICAL HISTORY: DEFORMITY COMPARISON: Hand Right 3 View dated 10/13/2022 TECHNIQUE: Right forearm, 2 views. FINDINGS: Distal radial fracture better evaluated on dedicated right wrist radiograph. No other susp icious osseous lesions. Soft tissue swelling about the wrist. No foreign body or other soft tissue abnormality. IMPRESSION: Distal radial fracture, better evaluated on dedicated right wrist radiographs.
[2022-10-13] MEDS ORDERED: ETOMIDATE 20 MG/10 ML VIAL IV ONE (22:38)
[2022-10-13] MEDS ORDERED: NA CHLORIDE 0.9% 1,000 ML ONE (22:39)
[2022-10-13] MEDS ORDERED: HYDROCODONE/APAP 10/325 TAB ONE (22:39)
[2022-10-13] MEDS ORDERED: ONDANSETRON 4 MG (ODT) TAB ONE ×2 (22:40→23:53)
--- NOTE | 2022-10-13 23:45 | EDPHYS ---
Physician Documentation [facility] Name: Bella Ireland Age: 81 yrs Sex: Female : 1940 Arrival Date: 10/13/2022 Time: 19:58 Bed 17 Private MD: ED Physician Harvinder St HPI: 10/13 20:09 This 81 yrs old Female presents to ER via Unassigned with complaints of Fall sp4 Injury, Wrist Injury. 20:17 Patient presents with acute injury to the right wrist associated with deformity. After sp4 falling on it at home. 23:36 Patient states she periodically gets vertigo and falls down. This time she developed sp4 acute vertigo fell onto the right hand and sustained a right wrist deformity with pain. . Patient states she has some side effects to opiate pain medications such as hallucinations.. There is obvious right wrist dinner fork deformity on arrival. Historical: - Allergies: 20:47 No Known Allergies; nj1 - PMHx: 20:47 Migraines; Cancer; Depression; Hyperlipidemia; Hypertension; Hypothyroidism; nj1 - PSHx: 20:48 Appendectomy; Cholecystectomy; Colon resection; Mastectomy, left; nj1 - Immunization history:: Client reports receiving the 2nd dose of the Covid vaccine. - Social history:: Smoking status: Patient denies any tobacco usage or history of. - Family history:: not pertinent. ROS: 23:36 Constitutional: Negative for fever, chills, and weight loss, Eyes: Negative for injury, sp4 pain, redness, and discharge, ENT: Negative for injury, pain, and discharge, Neck: Negative for injury, pain, and swelling, Cardiovascular: Negative for chest pain, palpitations, and edema, Respiratory: Negative for shortness of breath, cough, wheezing, and pleuritic chest pain, Abdomen/GI: Negative for abdominal pain, nausea, vomiting, diarrhea, and constipation, Back: Negative for injury and pain, : Negative for injury, bleeding, discharge, and swelling, MS/Extremity: Right wrist pain, right wrist deformity, right wrist tenderness, and injury. Otherwise negative for other injury Skin: Negative for injury, rash, and discoloration, Neuro: Negative for headache, weakness, numbness, tingling, and seizure, Psych: Negative for depression, anxiety, Allergy/Immunology: Negative for hives, rash, and allergies Endocrine: Negative for neck swelling, polydipsia, polyuria, polyphagia, and weight changes Hematologic/Lymphatic: Negative for swollen nodes, abnormal bleeding, and unusual bruising Exam: 23:36 Constitutional: This is a well developed, well nourished patient who is awake, alert, sp4 and in no acute distress. Head/Face: Normocephalic, atraumatic. Eyes: Pupils equal round and reactive to light, extra-ocular motions intact. Lids and lashes normal. Conjunctiva and sclera are not injected. Cornea within normal limits. Periorbital areas with no swelling, redness, or edema. ENT: Nares patent. No nasal discharge, no septal abnormalities noted. Tympanic membranes are normal and external auditory canals are clear. Oropharynx with no redness, swelling, or masses, exudates, or evidence of obstruction, uvula midline. Mucous membranes moist. Neck: Trachea midline, no thyromegaly or masses palpated, and no cervical lymphadenopathy. Supple, full range of motion without nuchal rigidity, or vertebral point tenderness. No Meningismus. Chest/axilla: Normal chest wall appearance and motion. Nontender with no deformity. No lesions are appreciated. Cardiovascular: Regular rate and rhythm with a normal S1 and S2. No gallops, murmurs, or rubs. Normal PMI, no JVD. No pulse deficits. Respiratory: Lungs have equal breath sounds bilaterally, clear to auscultation and percussion. No rales, rhonchi or wheezes noted. No increased work of breathing, no retractions or nasal flaring. Abdomen/GI: Soft, non-tender, with normal bowel sounds. No distension or tympany. No guarding or rebound. No evidence of tenderness throughout. Back: No spinal tenderness. No costovertebral tenderness. Skin: Warm, dry with normal turgor. Normal color with no rashes, no lesions, and no evidence of cellulitis. MS/ Extremity: Pulses equal, no cyanosis. Right wrist dinner fork deformity indicative of right wrist fracture with dorsal displacement.. Neurovascular status is intact. Movement is preserved Neuro: Awake and alert, GCS 15, oriented to person, place, time, and situation. Cranial nerves II-XII grossly intact. Motor strength 5/5 in all extremities. Sensory grossly intact. Psych: Awake, alert, with orientation to person, place and time. Behavior, mood, and affect are within normal limits Vital Signs: 20:45 BP 143 / 73; Pulse 91; Resp 18; Temp 98.2; Pulse Ox 99% ; Weight 68.95 kg; Height 5 ft. nj1 2 in. ; Pain 8/10; 22:45 BP 160 / 78; Pulse 19; Resp 19; Pulse Ox 100% on R/A; jb4 23:40 BP 149 / 72; Pulse 78; Resp 18; Pulse Ox 100% on R/A; jb4 20:45 Body Mass Index 27.80 (68.95 kg, 157.48 cm) nj1 20:45 Pain Scale: Adult nj1 Procedures: 23:36 Splinting: Splint applied to dorsal aspect of right forearm, right wrist and right hand sp4 using Orthoglass splint, Right forearm wrist hand sugar-tong Ortho-Glass splint with moderate sedation. applied by myself. post reduction film - reveals improved alignment, Examined by me, post splint application: neurovascular intact, 2+ distal pulses palpable, brisk capillary refill noted, Patient tolerated well. Moderate sedation: Pre-procedure assessment: the patient has been NPO 4 hour(s) prior to arrival, ASA physical classification: II - mild/mod systemic disease that does not interfere with daily routines, Airway assessment: able to hyperextend neck, able to maintain airway, can open mouth without difficulty, Mallampati classification of tongue size: II - faucial pillars and soft palate can be visualized, but uvula is masked by the base of the tongue, Monitoring during procedure: slab stripper, continuous pulse oximetry, nurse at bedside at all times, Medications employed: Etomidate, Etomidate 10 mg IV push, Post-procedure assessment: the patient is moderately sedated, Respiratory status: even and unlabored, a reversal agent was not used, Sedation tolerated well, patient will, and is back to her normal mental status. MDM: 20:18 Patient medically screened. sp4 23:36 Differential diagnosis: contusion, fracture, laceration, sprain, strain. Data reviewed: sp4 vital signs, nurses notes, old medical records, radiologic studies, plain films, ultrasound. Consideration of Admission/Observation Escalation of care including admission/observation considered. ED course: X-ray revealed comminuted volar apex angulated distal radial metaphyseal fracture. Anterior subluxation of the ulnar head relative to the carpus. Distal radial fracture. Subluxation improved after reduction.. There is applied sugar-tong splint. Patient advised to see Dr. García with orthopedics on Saturday for repeat assessment. Advised arm sling and splint at all times. Will prescribe tramadol and ondansetron as needed for pain.. 10/13 20:18 Order name: Forearm Right XRAY; Complete Time: 22:54 sp4 10/13 20:18 Order name: Hand Right 3 View XRAY; Complete Time: 22:54 sp4 10/13 23:23 Order name: Wrist Right 2 View XRAY sp4 10/13 22:18 Order name: Saline Lock; Complete Time: 23:00 sp4 10/13 22:18 Order name: Splint; Complete Time: 23:58 sp4 Administered Medications: 23:52 Discontinued: NS 0.9% IV 1000 ml IV at 125 ml/hr continuous jb4 20:53 Drug: Ibuprofen PO 400 mg Route: PO; nj1 22:30 Drug: Ondansetron PO 4 mg Route: PO; rv 22:45 Drug: [place] PO 10 mg-325 mg 1 tabs Route: PO; rv 23:15 Drug: NS 0.9% IV 1000 ml Route: IV; Rate: 125 ml/hr; Site: left antecubital; jb4 23:15 Drug: Etomidate IVP 10 mg Route: IVP; Site: left antecubital; jb4 23:52 Follow up: Response: No adverse reaction jb4 23:51 Drug: traMADol PO 50 mg Route: PO; jb4 23:52 Drug: Ondansetron PO 4 mg Route: PO; jb4 Disposition Summary: 10/13/22 23:45 Discharge Ordered Location: Home sp4 Problem: new sp4 Symptoms: have improved sp4 Condition: Stable sp4 Diagnosis - Fracture of lower end of radius sp4 - Still radius fracture with angulation right, initial encounter sp4 Followup: sp4 - With: Hang García MD - When: 1 - 2 days - Reason: Discharge Instructions: - Discharge Summary Sheet sp4 - Colles Fracture sp4 Forms: - Prescription Opioid Use sp4 Prescriptions: - Zofran 4 mg Oral Tablet - take 1 tablet by ORAL route every 6 hours As needed PRN nausea; 30 tablet; sp4 Refills: 0, Product Selection Permitted - Tramadol 50 mg Oral Tablet - take 1 tablet by ORAL route every 8 hours as needed; 30 tablet; Refills: 0, sp4 Product Selection Permitted Signatures: Dispatcher [employer] Sheldon Barillas RN RN jb4 Reyes Golden RN RN rv Harvinder St MD MD sp4 Alexandria Carrero RN RN nj1
--- NOTE | 2022-10-13 23:45 | ER ---
Nurse's Notes [facility] Name: Bella Ireland Age: 81 yrs Sex: Female : 1940 Arrival Date: 10/13/2022 Time: 19:58 Bed 17 Private MD: Diagnosis: Fracture of lower end of radius;Still radius fracture with angulation right, initial encounter Presentation: 10/13 20:45 Chief complaint: Patient states: Was playing [email or web address], bend over to pick something up, nj1 her "vertigo" got her to fall trying to catch herself with her right hand. R wrist/arm pain/swelling. Coronavirus screen: Vaccine status: Patient reports receiving the 2nd dose of the covid vaccine. Ebola Screen: Patient denies travel to an Ebola-affected area in the 21 days before illness onset. Initial Sepsis Screen: Does the patient meet any 2 criteria? HR > 90 bpm. No. Patient's initial sepsis screen is negative. Does the patient have a suspected source of infection? No. Patient's initial sepsis screen is negative. Risk Assessment: Do you want to hurt yourself or someone else? Patient reports no desire to harm self or others. Onset of symptoms was October 13, 2022. 20:45 Method Of Arrival: Ambulatory nj1 20:45 Acuity: MARGIE 3 nj1 20:53 Note Patient and patients family do not want norco at this time. nj1 Historical: - Allergies: 20:47 No Known Allergies; nj1 - PMHx: 20:47 Migraines; Cancer; Depression; Hyperlipidemia; Hypertension; Hypothyroidism; nj1 - PSHx: 20:48 Appendectomy; Cholecystectomy; Colon resection; Mastectomy, left; nj1 - Immunization history:: Client reports receiving the 2nd dose of the Covid vaccine. - Social history:: Smoking status: Patient denies any tobacco usage or history of. - Family history:: not pertinent. Screenin:40 [facility] ED Fall Risk Assessment (Adult) History of falling in the last 3 months, jb4 including since admission No falls in past 3 months (0 pts) Confusion or Disorientation No (0 pts) Score/Fall Risk Level 0 - 2 = Low Risk Oriented to surroundings, Maintained a safe environment. Abuse screen: Denies threats or abuse. Nutritional screening: No deficits noted. Tuberculosis screening: No symptoms or risk factors identified. Assessment: 22:45 General: Appears in no apparent distress. comfortable, Behavior is calm, cooperative, jb4 appropriate for age. Pain: Complains of pain in right wrist Pain does not radiate. Pain currently is 8 out of 10 on a pain scale. Neuro: Level of Consciousness is awake, alert, obeys commands, Oriented to person, place, time, situation. Cardiovascular: Patient's skin is warm and dry. Respiratory: Airway is patent Respiratory effort is even, unlabored, Respiratory pattern is regular, symmetrical. GI: No signs and/or symptoms were reported involving the gastrointestinal system. : No signs and/or symptoms were reported regarding the genitourinary system. EENT: No signs and/or symptoms were reported regarding the EENT system. Derm: Skin is intact, Skin is pink, warm \\T\\ dry. Musculoskeletal: Circulation, motion, and sensation intact. Range of motion: intact in all extremities. Vital Signs: 20:45 BP 143 / 73; Pulse 91; Resp 18; Temp 98.2; Pulse Ox 99% ; Weight 68.95 kg; Height 5 ft. nj1 2 in. ; Pain 8/10; 22:45 BP 160 / 78; Pulse 19; Resp 19; Pulse Ox 100% on R/A; jb4 23:40 BP 149 / 72; Pulse 78; Resp 18; Pulse Ox 100% on R/A; jb4 20:45 Body Mass Index 27.80 (68.95 kg, 157.48 cm) nj1 20:45 Pain Scale: Adult va1 ED Course: 20:00 Patient arrived in ED. ja2 20:[address] MD is Attending Physician. sp4 20:47 Triage completed. nj1 20:49 Arm band placed on left wrist. nj1 20:54 Patient Ice pack given/applied to injured extremity. nj1 21:20 Forearm Right XRAY In Process Unspecified. EDMS 21:20 Hand Right 3 View XRAY In Process Unspecified. EDMS 23:40 Patient has correct armband on for positive identification. Bed in low position. Call jb4 light in reach. Side rails up X 1. Client placed on continuous cardiac and pulse oximetry monitoring. NIBP monitoring applied. 23:40 No provider procedures requiring assistance completed. IV discontinued, intact, jb4 bleeding controlled, No redness/swelling at site. Pressure dressing applied. 23:41 Wrist Right 2 View XRAY In Process Unspecified. EDMS 23:44 Hang García MD is Referral Physician. sp4 Administered Medications: 23:52 Discontinued: NS 0.9% IV 1000 ml IV at 125 ml/hr continuous jb4 20:53 Drug: Ibuprofen PO 400 mg Route: PO; nj1 22:30 Drug: Ondansetron PO 4 mg Route: PO; rv 22:45 Drug: [place] PO 10 mg-325 mg 1 tabs Route: PO; rv 23:15 Drug: NS 0.9% IV 1000 ml Route: IV; Rate: 125 ml/hr; Site: left antecubital; jb4 23:15 Drug: Etomidate IVP 10 mg Route: IVP; Site: left antecubital; jb4 23:52 Follow up: Response: No adverse reaction jb4 23:51 Drug: traMADol PO 50 mg Route: PO; jb4 23:52 Drug: Ondansetron PO 4 mg Route: PO; jb4 Outcome: 23:45 Discharge ordered by . sp4 10/14 00:02 Discharged to home ambulatory, with family. jb4 Condition: stable Discharge instructions given to patient, Instructed on discharge instructions, follow up and referral plans. medication usage, Demonstrated understanding of instructions, follow-up care, medications, Prescriptions given X 2. 00:02 Patient left the ED. jb4 Signatures: Dispatcher [employer] EDMS Sheldon Mcgovern RN RN jb4 Reyes Golden RN RN rv Jailene Benton Sergey, MD MD sp4 Alexandria Carrero RN RN nj1 Corrections: (The following items were deleted from the chart) 10/13 23:44 23:15 Etomidate IVP 20 mg IVP in left antecubital jb4 jb4
[2022-10-13] MEDS ORDERED: TRAMADOL HCL 50 MG TAB ONE (23:53)
--- NOTE | 2022-10-15 11:28 | RAD REPORT ---
EXAM DESCRIPTION: RAD - Wrist Right 2 View - 10/13/2022 11:39 pm CLINICAL HISTORY: 81 years Female reduction. TECHNIQUE: 2 views of the right wrist. COMPARISON: No prior exams provided for comparison. FINDINGS: There is an acute, mildly impacted fracture of the right distal radial diaphysis without i ntra-articular extension. There is a nondisplaced fracture at the base of the ulnar styloid. No other acute fracture. No soft tissue gas or foreign body. 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 No aggressive osseous lesion. IMPRESSION: Acute, mildly impacted fracture of the right distal radius. Nondisplaced fracture of the base of the ulnar styloid. Electronically signed by: Khadijah Arroyo MD 10/14/2022 12:23 AM CDT Due to temporary technical issues with the PACS/Fluency reporting system, reports are being signed by the in house radiologists without review as a courtesy to insure prompt reporting. The interpreting radiologist is fully responsible for the content of the report.
== END 2022-10-14 00:02 | disposition home or self-care (01) ==
LOC: ER 19:58
PROC: 0PSH35Z Reposition Right Radius with External Fixation Device, Percutaneous Approach (ICD-10-PCS; principal; 2022-10-14)
PROC: 0PSK35Z Reposition Right Ulna with External Fixation Device, Percutaneous Approach (ICD-10-PCS; 2022-10-14)
DX: S52.501A Unspecified fracture of the lower end of right radius, initial encounter for closed fracture (principal); S52.614A Nondisplaced fracture of right ulna styloid process, initial encounter for closed fracture
CPT/HCPCS: 73130; 73090; 73100; 96374; 99284; 25605; Q0162 ×2; J7030

== ENCOUNTER 2023-04-03 09:56 | Day surgery (SDC) | payer OTHER ==
[2023-04-02 14:10] LABS: Absolute Lymphocytes (CBC) 2.5 K/uL (0.7-4.9); Hematocrit 37.1 % (36.0-45.0); Lymphocytes % 35.3 % (15.3-44.8); MCV 83.6 fL (80-100); MPV 8.5 fL (7.6-11.3); Platelets 230 thou/uL (152-406); RBC Red Blood Cell Count 4.44 M/uL (3.86-4.86)
[2023-04-02 14:20] LABS: Potassium 3.8 mEq/L (3.5-5.1)
[2023-04-03] MEDS: CEFAZOLIN SODIUM 1 GM/VIAL ONE ×2 (10:54→11:08)
[2023-04-03] MEDS ORDERED: FENTANYL CITR 100 MCG/2 ML ONE (11:11)
[2023-04-03] MEDS ORDERED: ONDANSETRON 4 MG/2 ML VIAL ONE (11:12)
[2023-04-03] MEDS ORDERED: KETOROLAC 30 MG/ML INJ ONE (11:35)
[2023-04-03] MEDS ORDERED: dexAMETHasone 4 MG/ML VIAL ONE (11:37)
[2023-04-03] MEDS: FENTANYL CITR 100 MCG/2 ML ONE ×2 (12:20→12:25)
--- NOTE | 2023-04-03 12:20 | OP ---
Date of Procedure: 04/03/2023 Surgeon: Osorio Wilkins MD Preoperative Diagnosis: Right severe carpal tunnel syndrome. Postoperative Diagnosis: Right severe carpal tunnel syndrome. Procedure: Right open carpal tunnel release. Estimated Blood Loss: Less than 3 cc. Complications: There were no complications. Specimens: There were no pathology specimens sent. Indications For Operation: Ms. Ireland is an 82-year-old female, who broke her wrist some time ago. S he chose to treat this nonoperatively and does still with slight deformity. However, she is complain ing of numbness and tingling basically in both of her hands that is severe and longstanding. I do no t really think this was made worse by the wrist fracture, however, continues to have pain and problem s related with both of her hands. She was sent to Neurology and demonstrated severe carpal tunnel sy ndrome on both hands. Risks, benefits, and alternatives of different methods of treating this were d iscussed with the patient and she opts for operative release. On speaking with her, she does have 2 scars on her wrist, which she says she thinks one of them may have been from carpal tunnel surgery in the past, however, she is unsure. She was told that this maybe have a predictably less good result if this is recurrent carpal tunnel syndrome; however, if it was, we would simply extend the incision to do recurrent release, however, unsure at this time. Also, given the severe nature, she was told o f possible limited goals as well and the patient and family state they understand things as presented and wishes to proceed. Description Of Procedure: The patient was taken to the operating room and placed in supine position. General anesthesia obtained by staff. Following this, well-padded tourniquet was placed on superio r right arm. Right upper extremity was then prepped and draped in the usual sterile fashion. Follow ing this, the arm was then elevated, but not exsanguinated. Tourniquet was raised. A standard incis ion was made, which parallels the thenar crease with an ulnar deviation at the most distal wrist crea se. It was taken down carefully through skin only. Meticulous hemostasis being maintained using bip olar electrocautery. This leads to the palmar fascia, which was divided longitudinally. Any obstruc tions over the transverse carpal ligament were gently swept to the side and a small palak was made in the transverse carpal ligament. This was then released from a proximal to distal direction until the re were no constricting bands. It was then released from distal to proximal direction until there we re no constricting bands. It should be noted that near the region of the wrist creases, she does hav e some degree of what appears to be scarring; however, this does not appear to be consistent with a p revious carpal tunnel release and this was completely released as well to allow for no constricting b ands throughout the course of the median nerve throughout the wrist and tourniquet was then dropped. Any bleeding was controlled using bipolar electrocautery, of which there was minimal. The skin was then closed using interrupted nylon sutures. The patient was placed in a well-padded sterile dressin g, awakened, and taken to recovery room in good condition. There were no complications. /МАРИНА Voice ID: [id number] Report ID: [id number]
[2023-04-03 12:56] VITALS: BP 156/66; TEMP 98.5; O2SAT 96
[2023-04-03] MEDS ORDERED: TRAMADOL HCL 50 MG TAB ONE (13:02)
--- NOTE | 2023-04-03 17:23 | EKG ---
Test Date: 2023-04-02 Test Time: 14:29:39 Harp Regulator: DEAN MEASUREMENT RESULTS: Intervals: Rate: 81 DE: 152 QRSD: 78 QT: 362 QTc: 420 [place]: P: 69 DE: 152 QRS: -9 T: 56 INTERPRETIVE STATEMENTS: Normal sinus rhythm Nonspecific T wave abnormality Abnormal ECG Compared to ECG 02/11/2019 15:30:48 T-wave abnormality now present Electronically Signed On 04-03-23 17:20:18 GALVANIZER by Eh Arshad
== END 2023-04-03 13:28 | disposition home or self-care (01) ==
LOC: OR 09:56
PROVIDERS: ATTEND Orthopaedic Surgery
PROC: 01N50ZZ Release Median Nerve, Open Approach (ICD-10-PCS; principal; 2023-04-03 11:30)
DX: G56.01 Carpal tunnel syndrome, right upper limb (principal); R53.1 Weakness; R20.0 Anesthesia of skin; I10 Essential (primary) hypertension; Z85.3 Personal history of malignant neoplasm of breast
CPT/HCPCS: 93005; 85025; 80048; 36415; 64721; J1100; J3010 ×2; J2405; J0690